=== PATIENT | female | born 1940 | race Caucasian/White ===

== ENCOUNTER → 2016-11-05 | Outpatient (CLI) | payer MEDICARE, OTHER ==
--- NOTE | 2016-11-08 06:52 | CT ---
Procedure: CT CHEST ANGIOGRAPHY WITH IV CONTRAST Exam date: 11/05/2016 12:00 AM CDT Ordering Provider: MAX QUEZADA Clinical Indication: FAMILY HISTORY OF HEART DISEASE Comparison: None Technique: Using a multislice scanner, sequential axial imaging was obtained in the thorax from the level of the thoracic inlet through the lung bases before and after intravenous contrast administration. The contrast bolus was timed to evaluate the pulmonary arteries for thrombus. 3-D MIP coronal and sagittal reformatted images were obtained. Findings: The central pulmonary arteries demonstrate normal contrast enhancement. The second and third order branches demonstrate normal contrast enhancement. There are no filling defects to suggest pulmonary artery embolism. The thoracic aorta is of normal diameter. There is no evidence of aortic dissection or aneurysm. There is no supraclavicular or axillary lymphadenopathy. There is no mediastinal, hilar, or subcarinal lymphadenopathy. Compressive atelectasis of the right lower lobe secondary to large hiatal hernia. Otherwise, the lungs are clear. Diffuse thoracic spondylosis without acute fracture or subluxation. Large right-sided posterior diaphragmatic hernia containing the entirety of the stomach as well as multiple loops of colon. Mesenteric fat extends superiorly all the way to the aortic arch. IMPRESSION: 1. No evidence of pulmonary artery embolism. 2. No evidence of aortic dissection or aneurysm. 3. Large right-sided diaphragmatic hernia containing multiple loops of colon as well as the entirety of the stomach and copious amounts of mesenteric fat. Electronically signed by: Nikhil Devi MD 11/08/2016 6:51 AM CDT
== END | disposition home or self-care (01) ==
LOC: CT 09:35
PROVIDERS: ATTEND Nuclear Medicine Nuclear Cardiology
DX: I48.0 Paroxysmal atrial fibrillation (principal); I10 Essential (primary) hypertension; Z82.49 Family history of ischemic heart disease and other diseases of the circulatory system

== ENCOUNTER → 2017-06-15 | Outpatient (CLI) | payer MEDICARE, OTHER | END | disposition home or self-care (01) | LOC: GMAB 10:33 | PROVIDERS: ATTEND Family Medicine | DX: E03.9 Hypothyroidism, unspecified (principal) ==

== ENCOUNTER → 2018-07-05 | Outpatient (CLI) | payer MEDICARE, OTHER ==
--- NOTE | 2018-07-06 06:17 | US ---
Procedure: US THYROID Exam Date: 07/05/2018 Ordering Provider: AZAM MUÑIZ Clinical Indication: THYROID NODULE Comparison: None Technique: Real-time ultrasonography was obtained of the thyroid gland and outside sales account representative images were recorded. Findings: The right lobe of the thyroid gland measures 2.5 x 1.2 x 1.4 cm. There are no nodules in the right lobe of the thyroid gland. The left lobe of the thyroid gland measures 3.0 x 1.0 x 1.1 cm. There are no nodules in the left lobe of the thyroid gland The thyroid isthmus is of normal thickness. There are no nodules in the thyroid isthmus. Impression: Negative thyroid ultrasound. ACR TI-RADS recommendations: TR5 (>/=7 points) - FNA if >/=1 cm, follow-up if 0.5 - 0.9 cm every year for 5 years TR4 (4-6 points) - FNA if >/=1.5 cm, follow-up if 1 - 1.4 cm in 1, 2, 3 and 5 years TR3 (3 points) - FNA if >/=2.5 cm, follow -up if 1.5 - 2.4 cm in 1, 3 and 5 years TR2 (2 points) and TR1 (0 points) - No FNA or follow-up * ACR TI-RADS recommends that no more than two nodules with the highest ACR TI-RADS total point should be biopsied and no more than four nodules should be followed. Electronically signed by: Mack Morelos MD 07/06/2018 6:16 AM [facility]
== END ==
LOC: US 16:35
PROVIDERS: ATTEND Family Medicine
DX: E04.1 Nontoxic single thyroid nodule (principal); E03.9 Hypothyroidism, unspecified

== ENCOUNTER → 2018-10-04 | Outpatient (CLI) | payer MEDICARE, OTHER | LOC: GMAE 11:16 | PROVIDERS: ATTEND Family Medicine | DX: E03.9 Hypothyroidism, unspecified (principal) ==

== ENCOUNTER → 2019-07-31 | Outpatient (CLI) | payer MEDICARE, OTHER | LOC: GMAE 10:26 | PROVIDERS: ATTEND Family Medicine | DX: E03.9 Hypothyroidism, unspecified (principal); I10 Essential (primary) hypertension; E78.2 Mixed hyperlipidemia ==

== ENCOUNTER → 2020-04-08 | Outpatient (CLI) | payer MEDICARE, OTHER | LOC: YCFC.O 13:37 | PROVIDERS: ATTEND Family Medicine | DX: R07.9 Chest pain, unspecified (principal); I10 Essential (primary) hypertension; E03.9 Hypothyroidism, unspecified; E78.5 Hyperlipidemia, unspecified ==

== ENCOUNTER → 2020-04-14 | Outpatient (CLI) | payer MEDICARE, OTHER | LOC: RESP 14:03 | PROVIDERS: ATTEND Physician Assistant | DX: R00.1 Bradycardia, unspecified (principal) ==

== ENCOUNTER → 2020-08-06 | Outpatient (CLI) | payer MEDICARE, OTHER ==
--- NOTE | 2020-08-06 17:53 | RAD ---
EXAM DESCRIPTION: Barium Enema w/ Gastografin CLINICAL HISTORY: diverticulosis of intestines COMPARISON: None Available. TECHNIQUE: Fluoroscopy performed by Dr. Hickey. Patient oblique left decubitus on fluoroscopic table. Enema tip inserted in rectum. Gastrografin contrast, diluted by equal part water, introduced into the rectum in a retrograde manner under fluoroscopic visualization. Multiple fluoroscopic guided images. Overhead digital abdominal pelvic images obtained. The enema tip was removed and patient evacuated. Additional digital overhead abdominal pelvic images were obtained. The patient tolerated the procedure well, with no immediate complications. Fluoroscopy time was 4.9 minutes.. Fluoroscopic images recorded: 19 . Conventional abdominal images recorded: 4. DAP: 77.5 flores - centimeter squared. FINDINGS: The entire colon was visualized with reflux into the terminal ileum. Spasm in the sigmoid colon with multiple diverticula. No contrast extravasation. Few diverticula in the descending colon. Minimal debris in the ascending colon and proximal transverse colon, but otherwise adequate bowel preparation. Questionable mass effect on the medial colon just below the ileocecal valve. No contrast extravasation. No obstruction in the terminal ileum. IMPRESSION: Entire colon was visualized with reflux into the terminal ileum. No obstruction. Diverticulosis in the sigmoid colon more than the descending colon with spasm in the sigmoid colon. Minimal amount of residual debris/fecal matter in the colon. Question of mass effect on the cecum in the vicinity of the terminal ileum/ileocecal valve. No definite invasion. If this is a segment of clinical concern, consider CT scan of the abdomen and pelvis with oral and IV contrast. Electronically signed by: Giovanny Hickey MD 08/06/2020 5:52 PM [facility]
== END ==
LOC: RAD 08:54
PROVIDERS: ATTEND Colon & Rectal Surgery
DX: K57.30 Diverticulosis of large intestine without perforation or abscess without bleeding (principal); K63.9 Disease of intestine, unspecified

== ENCOUNTER → 2020-08-18 | Outpatient (CLI) | payer MEDICARE, OTHER | LOC: GMAE 17:05 | PROVIDERS: ATTEND Family Medicine | DX: R06.02 Shortness of breath (principal); E03.9 Hypothyroidism, unspecified; I10 Essential (primary) hypertension; E78.2 Mixed hyperlipidemia ==